=== PATIENT | male | born 1990 | race Caucasian/White ===

== ENCOUNTER 2024-11-26 10:02 | Day surgery (SDC) | payer OTHER ==
--- NOTE | 2024-11-21 11:12 | RAD REPORT ---
EXAM: Chest Pa And Lat (2 Views) HISTORY: 34 years Male PRE PROCEDURE COMPARISON: No prior exams FINDINGS: LUNGS/PLEURA: The lungs are clear. No pleural effusions or pneumothorax. No pulmonary edema. CARDIAC/MEDIASTINUM: The cardiac silhouette is within normal limits. UPPER ABDOMEN: No significant abnormality. BONES: No acute abnormality. LINES/TUBES/OTHER: N/A IMPRESSION: No evidence of acute cardiopulmonary disease.
[2024-11-21 11:25] LABS: Absolute Lymphocytes (CBC) 2.2 K/uL (0.7-4.9); Hematocrit 42.1 % (39.6-49.0); Hemoglobin 14.2 g/dL (13.6-17.9); MCH 31.1 pg (27.0-35.0); MCHC 33.8 g/dL (32.0-36.0); MCV 91.9 fL (80-100); MPV 8.3 fL (7.6-11.3); Nucleated RBC Absolute Count 0.0 (0-0); Nucleated Red Blood Cells % 0.1 % (0-0); RBC Red Blood Cell Count 4.58 M/uL (4.33-5.43); White Blood Count 6.20 thou/uL (4.3-10.9)
[2024-11-21 11:43] LABS: PT Prothrombin Time 12.2 SECONDS (10-13.0); PTT, Activated Partial Thromb 32.9 SECONDS (27.2-37.4); Protime INR 1.08
[2024-11-21 11:45] LABS: Anion Gap 8.2 mEq/L (5.0-15.0); BUN Blood Urea Nitrogen 13.0 mg/dL (7-18); Glucose Level 91.0 mg/dL (74-106); Potassium 4.2 mEq/L (3.5-5.1)
[2024-11-26] MEDS ORDERED: Ringers Lactate 1,000 ML IV ONE (10:15)
[2024-11-26] MEDS ORDERED: MIDAZOLAM HCL 2 MG/2 ML INJ ONE (10:18)
[2024-11-26] MEDS ORDERED: KETOROLAC 30 MG/ML INJ ONE (10:24)
[2024-11-26] MEDS ORDERED: FENTANYL CITR 100 MCG/2 ML ONE (10:24)
[2024-11-26] MEDS ORDERED: LIDOCAINE 1% MPF 5 ML VIAL ONE (10:24)
[2024-11-26 10:55] VITALS: O2SAT 100
[2024-11-26] MEDS ORDERED: EPHEDRINE SULF 50 MG/ML VIAL ONE (11:10)
[2024-11-26] MEDS: CEFAZOLIN SODIUM 2 GM/VIAL ONE (11:10)
[2024-11-26] MEDS: BUPIVACAINE 0.25% PF 10 ML VIAL ONE (11:26)
--- NOTE | 2024-11-26 12:16 | P.BOP ---
Preoperative diagnosis: Left knee medial meniscus tear Postoperative diagnosis: Same Primary procedure: Left knee arthroscopic partial medial meniscectomy Director [employer]: NONE,NONE Estimated blood loss: 3 cc Specimen: None Findings: See dictation Anesthesia: General Complications: None Implants: None Fluids & blood products: Per anesthesia record Transferred to: Recovery Room Condition: Good
--- NOTE | 2024-11-26 12:22 | P.OP ---
Preoperative diagnosis: Left knee medial meniscus tear Postoperative diagnosis: Same Primary procedure: Left knee arthroscopic partial medial meniscectomy Anesthesia: General Estimated blood loss: 3 cc Specimen: None Findings: See dictation Operative Technique: Indication For Procedure: Reyes is a 34-year-old male who presented to my clinic with signs, symptoms, and MRI findings consistent with a left knee bucket handle medial meniscus tear. Given his pain and mechanical symptoms we elected to proceed with left knee arthroscopic partial medial meniscectomy vs medial meniscus repair. The tear appeared to be within the white white zone and I discussed with the patient prior to surgery that it would likely be a partial meniscectomy type procedure. I discussed with the patient risks and benefits associated with operative treatment. He expressed understanding and elected to proceed with operative treatment. Description Of Procedure: After informed consent was obtained, the patient was identified in the preoperative holding area. The left lower extremity was marked. Patient was brought to the operating room transferred to the operative table in the supine fashion and placed under general anesthesia. The left lower extremity was then prepped and draped in usual sterile fashion. A time-out was initiated. The correct patient and procedure were performed and identified. The patient did receive preoperative prophylactic antibiotics. The left lower extremity was exsanguinated using an Esmarch and the tourniquet was inflated to 300 mmHg. Standard anterior medial and anterior lateral portals were created. The arthroscope was brought in via the anterolateral portal and a diagnostic arthroscopy was performed. The arthroscope was first part of the patellofemoral joint and there were no significant chondromalacia changes noted of the the undersurface of the patella or trochlear groove. The arthroscope was then brought on the both medial and lateral gutters and there were no loose bodies found within the gutters. The arthroscope was first brought into the medial compartment and the patient was noted to have a bucket-handle type tear within the white white zone of the medial meniscus. The tear was flipped into the intercondylar notch. A partial medial meniscectomy was performed using meniscal biters and an arthroscopic shaver to smooth meniscal borders. The medial meniscus was probed and found to be stable after the partial meniscectomy was performed. There were no significant chondromalacia changes of the medial femoral condyle or medial tibial plateau noted. The arthroscope was then brought into the intercondylar notch where the patient was noted to have an intact ACL and PCL which were stable to probe. The arthroscope was then brought to the lateral compartment where the patient was noted to have an intact lateral meniscus which was stable to probe and no significant chondromalacia changes of the lateral femoral condyle or lateral tibial plateau. Arthroscopic instruments were then removed without complication. Wounds were then irrigated thoroughly with normal saline. Portals were approximated using a 3-0 Monocryl. Sterile dressings were applied. The patient was awakened and transferred to PACU in stable condition. Postoperative Plan: The patient will be weightbearing as tolerated on the left lower extremity. He will follow-up in clinic 1 week for wound check and dressing change. We will follow the post meniscectomy protocol 2 weeks postoperatively. Complications: None Implants: None Fluids & blood products: Per anesthesia record Transferred to: Recovery Room Condition: Good
[2024-11-26] MEDS: ONDANSETRON 4 MG/2 ML VIAL ONE ×2 (12:55→13:30)
[2024-11-26] MEDS: SCOPOLAMINE HYDROBROMIDE PATCH TD ONE (13:44)
[2024-11-26 13:49] VITALS: BP 117/65; TEMP 97
== END 2024-11-26 15:40 | disposition home or self-care (01) ==
LOC: OR 10:02
PROVIDERS: ATTEND Orthopaedic Surgery Sports Medicine
PROC: 0SBD4ZZ Excision of Left Knee Joint, Percutaneous Endoscopic Approach (ICD-10-PCS; principal; 2024-11-26 11:00)
DX: S83.242A Other tear of medial meniscus, current injury, left knee, initial encounter (principal); M25.562 Pain in left knee
CPT/HCPCS: 93005; 85025; 80048; 36415; 85610; 85730; 71046; 29881; J1885; J2704; J2003; J2250; J3010; J1100; J2405 ×2; J7120